=== PATIENT | male | born 1965 | race Caucasian/White ===

== ENCOUNTER 2018-06-25 16:34 | Emergency (ER) | payer OTHER ==
[~2018-06-25] VITALS: Ht 180.3 cm; Wt 126.5 kg
[2018-06-25] MEDS ORDERED: Lisinopril2.5 MG (17:58)
[2018-06-25] MEDS ORDERED: HYDPAM25 PO (17:59)
[2018-06-25] MEDS ORDERED: CEPH500 PO (19:37)
[2018-06-25] MEDS ORDERED: Norco 5-325 Ta1 EACH PO (19:37)
== END 2018-06-25 20:03 | disposition home or self-care (01) ==
LOC: ER 16:34
DX: S68.621A Partial traumatic transphalangeal amputation of left index finger, initial encounter (principal); W26.8XXA Contact with other sharp object(s), not elsewhere classified, initial encounter
CPT/HCPCS: 26951; 73140; 99283-25

== ENCOUNTER 2019-08-16 19:32 | Emergency (ER) | payer OTHER ==
[~2019-08-16] VITALS: Ht 180.3 cm; Wt 131.5 kg
[~2019-08-16 19:32] MED LIST: CEPH500 PO; HYDPAM25 PO; Lisinopril2.5 MG; Norco 5-325 Ta1 EACH PO
[2019-08-16] MEDS ORDERED: Cymbalta20 MG PO (19:44)
[2019-08-16] MEDS ORDERED: FISH OIL 1,0001 EAC1 PO (19:44)
[2019-08-16] MEDS ORDERED: HYDCHL25 PO (19:45)
[2019-08-16] MEDS ORDERED: Prednisone20 MG PO (19:48)
[2019-08-16] MEDS ORDERED: Roxicodone5 MG PO (19:48)
== END 2019-08-16 20:15 | disposition home or self-care (01) ==
LOC: ER 19:32
DX: L23.7 Allergic contact dermatitis due to plants, except food (principal); M10.9 Gout, unspecified; Z79.899 Other long term (current) drug therapy
CPT/HCPCS: 96372; 99283-25; A9270; J3301

== ENCOUNTER → 2020-02-15 | Outpatient (CLI) | payer OTHER ==
[~2020-02-15] MED LIST changes: +Cymbalta20 MG PO; +FISH OIL 1,0001 EAC1 PO; +HYDCHL25 PO; +Prednisone20 MG PO; +Roxicodone5 MG PO
[2020-02-18 00:08] LABS: ADENOVIRUS F 40/41 Not Detected (Not Detected); ASTROVIRUS Not Detected (Not Detected); C DIFFICILE TOXIN A/B Not Detected (Not Detected); CAMPYLOBACTER Not Detected (Not Detected); CRYPTOSPORIDIUM Not Detected (Not Detected); CYCLOSPORA CAYETANENSIS Not Detected (Not Detected); ENTAMOEBA HISTOLYTICA Not Detected (Not Detected); ENTEROAGGREGATIVE E COLI Not Detected (Not Detected); ENTEROPATHOGENIC E COLI Detected (Not Detected); ENTEROTOXIGENIC E COLI Not Detected (Not Detected); GIARDIA LAMBLIA Not Detected (Not Detected); NOROVIRUS GI/GII Not Detected (Not Detected); PLESIOMONAS SHIGELLOIDES Not Detected (Not Detected); ROTAVIRUS A Not Detected (Not Detected); SALMONELLA Detected (Not Detected); SAPOVIRUS Not Detected (Not Detected); SHIGA-TOXIN-PRODUCING E COLI Not Detected (Not Detected); SHIGELLA/ENTEROINVASIVE E COLI Not Detected (Not Detected); VIBRIO Not Detected (Not Detected); VIBRIO CHOLERAE Not Detected (Not Detected); YERSINIA ENTEROCOLITICA Not Detected (Not Detected)
== END | disposition home or self-care (01) ==
LOC: LAB EV 16:48 → LAB SHORT 16:48
PROVIDERS: General Practice
DX: R19.7 Diarrhea, unspecified (principal)
CPT/HCPCS: 0097U

== ENCOUNTER → 2020-02-15 | Outpatient (CLI) | payer OTHER ==
[2020-02-15 16:36] LABS: BASOPHILS PERCENT AUTO 0 % (0-2); EOSINOPHILS ABSOLUTE AUTO 0.02 K/mm3 (0.00-0.68); EOSINOPHILS PERCENT AUTO 0 % (0-6); Hematocrit 43.1 % (37.0-53.0); Hemoglobin 15.1 g/dL (13.5-17.5); IMMATURE GRAN ABSOLUTE AUTO 0.03 K/mm3 (0.00-0.10); IMMATURE GRAN PERCENT AUTO 1 % (0-1); LYMPHOCYTES PERCENT AUTO 16 % (21-46); MONOCYTES ABSOLUTE AUTO 0.65 K/mm3 (0.16-1.47); MONOCYTES PERCENT AUTO 10 % (4-13); Mean Corpuscular HGB 31.7 pg (26.0-34.0); Mean Corpuscular Volume 91 fL (80-100); Mean Platelet Volume 10.9 fL (9.1-12.4); NEUTROPHILS ABSOLUTE AUTO 4.59 K/mm3 (1.96-9.15); NEUTROPHILS PERCENT AUTO 73 % (41-73); Platelet Count 152 K/mm3 (150-400); RDW Coefficient Variation 12.9 % (11.7-14.2); RDW Standard Deviation 42.7 fL (35.1-46.3); Red Blood Cell Count 4.76 M/mm3 (4.30-5.90); White Blood Cell Count 6.29 K/mm3 (4.00-11.30)
[2020-02-15 16:44] LABS: Alanine Aminotransfer (ALT/SGP 40 U/L (12-78); Albumin, Blood 3.5 g/dL (3.4-5.0); Albumin/Globulin Ratio 0.8 (0.8-1.8); Alk Phos 77 U/L (40-126); Anion Gap 11 mmol/L (6-16); Aspartate Aminotrans (AST/SGOT 24 U/L (12-37); Bilirubin, Total 0.5 mg/dL (0.1-1.0); Blood Urea Nitrogen 11 mg/dL (8-24); Bun/Creatinine Ratio 12.9 (12.0-20.0); CO2, Blood 25 mmol/L (21-32); Calcium, Blood 9.1 mg/dL (8.5-10.1); Chloride, Blood 101 mmol/L (98-108); Creatinine, Blood 0.85 mg/dL (0.60-1.20); Globulin, Blood 4.2 g/dL (2.2-4.0); Glomerular Filtration Rate >60 (60-); Glucose, Blood 109 mg/dL (70-99); Potassium, Blood 3.7 mmol/L (3.5-5.5); Sodium, Blood 137 mmol/L (136-145); Total Protein, Blood 7.7 g/dL (6.4-8.2)
== END ==
LOC: LAB SHORT 16:29 → LAB EV 16:29
PROVIDERS: General Practice
DX: R19.7 Diarrhea, unspecified (principal)
CPT/HCPCS: 80053; 85025

== ENCOUNTER → 2025-04-01 22:11 | Emergency (ER) | payer OTHER ==
[~2025-04-01] VITALS: Ht 180.3 cm; Wt 137.9 kg
[2025-04-01 22:28] VITALS: BP 119/90
== END | disposition home or self-care (01) ==
LOC: ER 22:11
DX: S61.215A Laceration without foreign body of left ring finger without damage to nail, initial encounter (principal); I10 Essential (primary) hypertension; E11.9 Type 2 diabetes mellitus without complications; Z79.899 Other long term (current) drug therapy; W01.198A Fall on same level from slipping, tripping and stumbling with subsequent striking against other object, initial encounter
CPT/HCPCS: 12002; 73130; 90471; 90715; 99283-25